=== PATIENT | female | born 1955 | race Caucasian/White ===

== ENCOUNTER → 2017-07-30 | Outpatient (CLI) | payer OTHER, MEDICARE ==
[~2017-07-30] MED LIST: CLON-365 PO; OMNIPAQUE 350 MG/ML, 150 ML BOTTLE ONE; ONDA8TAB12 PO; OXYC10TA6 PO; SIMV40TA3 PO; SUCR1TAB PO; TIZA4TAB PO
== END ==
LOC: RAD 13:05
PROVIDERS: ATTEND Internal Medicine Gastroenterology
DX: K51.911 Ulcerative colitis, unspecified with rectal bleeding (principal); M25.561 Pain in right knee
CPT/HCPCS: 73564; 74177; Q9967